=== PATIENT | female | born 1955 | race Caucasian/White ===

== ENCOUNTER 2018-12-16 10:16 | Emergency (ER) | payer OTHER ==
[2018-12-16 10:31] VITALS: BMI 35.7
--- NOTE | 2018-12-16 12:14 | PDOC ---
History of Present Illness - General Chief Complaint: Weakness Stated Complaint: WEAKNESS Time Seen by Provider: 12/16/18 11:01 - History of Present Illness Initial Comments: 12/16/18 12:06 This is a 67 year old female with PMH significant for Fibromyalgia, tinnitus, TIA, and colonic polyps. She presented to the ER with complaints of light headedness and dizziness since this morning. She states that she woke up at 3 AM (which us normal for her), and was standing in her kitchen at around 7 AM when she suddenly felt light headed and like she was about to fall down. She lied down in her bedroom, and felt better after 20 minutes. Whens he got up and returned to the kitchen, her symptoms began to re-appear. She denies spinning of the room or her head when the symptoms appear. She complains of associated nausea and a mild headache, but no vomiting. She denies fever, chills, cough. She has had nor recent changes in her medications, no recent illnesses, and no recent travel. She has a history of Fibromyalgia diagnosed in the , TIA in 2000, tinnitus diagnosed in 2007, 3 colonic polyps Past History - Past Medical History Allergies/Adverse Reactions: Allergies Allergy/AdvReac Type Severity Reaction Status Date / Time No Known Allergies Allergy Unverified 12/16/18 10:31 Home Medications: Ambulatory Orders Aspirin 81 mg PO DAILY 12/16/18 Anemia: No Asthma: Yes (SLIGHT ASTHMA) Cancer: No Cardiac Disorders: No CVA: No COPD: No CHF: No Dementia: No Diabetes: No GI Disorders: Yes (DIVERTICULOSIS,GERD,HIATAL HERNIA,COLON POLYP,GASTRIC FUNDIC POLYPS) Disorders: No HTN: No Hypercholesterolemia: No Liver Disease: No Seizures: No Thyroid Disease: No Other medical history: FIBROMYALGIA - Surgical History Abdominal Surgery: No Appendectomy: No Cardiac Surgery: No Cholecystectomy: No Lung Surgery: No Neurologic Surgery: No Orthopedic Surgery: No - Immunization History Immunization Up to Date: Yes - Psycho Social/Smoking Cessation Hx Smoking History: Never smoked Have you smoked in the past 12 months: No Information on smoking cessation initiated: No Hx Alcohol Use: (WINE/VODKA DAILY) Drug/Substance Use Hx: No Substance Use Type: None Hx Substance Use Treatment: No Review of Systems - Review of Systems Constitutional: No: Symptoms Reported, See HPI, Chills, Diaphoresis, Fever, Loss of Appetite, Malaise, Night Sweats, Weakness, Weight Stable, Unintentional Wgt. Loss, Unexplained wgt Loss, Other HEENTM: No: Symptoms Reported, See HPI, Eye Pain, Blurred Vision, Tearing, Recent change in vision, Double Vision, Cataracts, Ear Pain, Ocular Prothesis, Ear Discharge, Nose Pain, Nose Congestion, Tinnitus, Nose Bleeding, Hearing Loss , Throat Pain, Throat Swelling, Mouth Pain, Dental Problems, Difficulty Swallowing, Mouth Swelling, Other Respiratory: Yes: Shortness of Breath. No: Symptoms reported, See HPI, Cough, Orthopnea, SOB with Exertion, SOB at Rest, Stridor, Wheezing, Productive cough, Hemoptysis, Other Cardiac (ROS): Yes: Chest Pain ABD/GI: Yes: Diarrhea, Nausea. No: Symptoms Reported, See HPI, Abdominal Distended, Abd. Pain w/ defecation, Blood Streaked Bowels, Constipated, Difficulty Swallowing, Poor Appetite, Poor Fluid Intake, Rectal Bleeding, Vomiting, Indigestion, Abdominal cramping, Tarry Stools, Other : No: Symptoms Reported, See HPI, Burning, Dysuria, Discharge, Frequency, Flank Pain, Hematuria, Incontinence, Pain, Urgency, Testicular Mass, Testicular Swelling, Lesions, Testicular Pain, Other Musculoskeletal: No: Symptoms Reported, See HPI, Back Pain, Gout, Joint Pain, Joint Swelling, Muscle Pain, Muscle Weakness, Neck Pain, Joint Stiffness, Other Integumentary: No: Symptoms Reported, See HPI, Bruising, Change in Color, Change in Hair/Nails, Dryness, Erythema, Flushing, Lesions, Lumps, Pallor, Pruritus, Rash, Sweating, Other Neurological: Yes: Dizziness Psychiatric: Yes: Anxiety Endocrine: No: Symptoms Reported, See HPI, Excessive Sweating, Flushing, Intolerance to Cold, Intolerance to Heat, Increased Hunger, Increased Thirst, Increased Urine, Unexplained Weight Gain, Unexplained Weight Loss, Change in Weight, Other Hematologic/Lymphatic: No: Symptoms Reported, See HPI, Anemia, Blood Clots, Easy Bleeding, Easy Bruising, Bleeding Diathesis, Lymph Node Abnormalities, Swollen Glands, Other *Physical Exam - Vital Signs Last Vital Signs Temp Pulse Resp BP Pulse Ox 69 17 104/48 L 99 12/16/18 10:26 12/16/18 10:26 12/16/18 10:26 12/16/18 10:26 - Physical Exam Comments: 12/16/18 14:41 Neuro Exam: Winona Hallpike maneuver negative, did not Motor 4/5 in upper as well as lower extremities Romberg's positive, was unable to stand with eyes closed Finger to nose, rapid alternating movements normal No nystagmus noted General Appearance: Yes: Appropriately Dressed. No: Nourished, Apparent Distress, Disheveled, Mild Distress, Moderate Distress, Severe Distress, Alcohol on Breath, Intoxicated, Cachetic, Obese, Thin, Other HEENT: positive: Normal Voice, Pharynx Normal. negative: EOMI, ALLISON, Normal ENT Inspection, Symmetrical, TMs Normal, Pale Conjunctivae, Photophobia, Scleral Icterus (R), Scleral Icterus (L), Muffled/Hoarse voice, Pharyngeal Erythema, Tonsillar Exudate, Tonsillar Erythema, Nasal Congestion, Rhinorrhea, Sinus Tenderness, Orbits, Hearing Decreased, Hearing Grossly Normal, TM Bulging , TM Dull, TM Erythema, Lesions, [place], Excessive drooling, Thrush, Other Neck: positive: Trachea midline. negative: Tender, Normal Thyroid, Rigid, Supple, Carotid bruit, Decreased range of motion, Stridor, Lymphadenopathy (R), Lymphadenopathy (L), Rigidity, Tender lateral, Tender midline, Thyromegaly, Other Respiratory/Chest: positive: Normal Breath Sounds. negative: Chest Tender, Lungs Clear, Respiratory Distress, Accessory Muscle Use, Labored Respiration, Rapid RR, Decreased Breath Sounds, Paradoxal Breathing, Crackles, Rales, Rhonchi , Stridor, Wheezing, Hyperresonant, Dullness, Plerual Rub, Other Cardiovascular: positive: Regular Rhythm, Regular Rate. negative: S1, S2, Edema , JVD, Murmur, Bradycardia, Tachycardia, Diastolic Murmur, Systolic Murmur, Gallop/S3, Gallop/S4, Irregularly Irregular, Irregular, Other Gastrointestinal/Abdominal: positive: Normal Bowel Sounds, Soft. negative: Tender, Flat, Organomegaly, Pulsatile Mass, Increased Bowel Sounds, Decreased BS , Protuberent, Distended, Guarding, Rebound, Tenderness, Hernia, Mass, Hepatomegaly, Spleenomegaly, Other Extremity: positive: Normal Inspection, Normal Range of Motion. negative: Normal Capillary Refill, Tender, Pelvis Stable, Coldness, Cyanosis, Delayed Capillary Refill, Pedal Edema, Swelling, Calf Tenderness, Erythema, Inflammation , Other Neurologic: positive: powerhouse engineer II-XII NML intact, Fully Oriented, Alert. negative: Normal Mood/Affect, Normal Response, Motor Strength 5/5, Abnormal Cranial NS, Respond to painful stimul, Responsive, EOM Palsy, Facial Droop, Numbness, Sensory Deficit, Finger to Nose, Confused, Disoriented, Depressed Affect, Babinski, Other Heart Score/ECG Review - Electrocardiogram EKG: Normal - Age Age: 45-65 - Risk Factors Risk Factors Heart Score: Yes Positive family hx of cardiac disease - Troponin Troponin: </= normal limit - ECG Intrepretation Rhythm: Regular Rhythm ED Treatment Course - LABORATORY CBC & Chemistry Diagram: 12/16/18 13:08 12/16/18 13:08 Medical Decision Making - Medical Decision Making 12/16/18 12:34 - Fingerstick glucose: 70 - CBC/CMP - UA - EKG NSR - N/S 1000 Bolus - CXR 12/16/18 14:34 - Trops negative (ordered because patient complained of chest pain that started an hour ago) - Labs reviewed - CXR performed 12/16/18 15:16 -CXR reviewed, no evidence of any acute pathology Discharge - Discharge Information Problems reviewed: Yes Clinical Impression/Diagnosis: Dizziness Condition: Improved - Admission No - Follow up/Referral Referrals: Yelena Michel MD [Non Staff, Medical] - Camille Mena [Other] - Patient Discharge Instructions Additional Instructions: You presented to the ER with complaints of light headedness and dizziness. We did blood tests, an X Ray, and a scan of your heart (EKG). We did not find any abnormalities requiring urgent treatment. You also received fluids through an IV. Since you do not require urgent treatment, you are now being discharged. Follow-up: - Please visit your clinical trial coordinator Dr. Camilel Mena within 1 week to get an Echo done for your heart - Please visit your primary care physician Dr. Yelena Michel within 1 week. Additional information: - Please visit the ER if you have a fever, uncontrollable vomiting, headaches, chest pain, if you fall down, or have difficulty breathing. - Post Discharge Activity
[2018-12-16] MEDS ORDERED: SODIUM CHLORIDE 1,000 ML IV STA (12:33)
[2018-12-16 12:55] LABS: URINE APPEARANCE CLEAR; URINE BILIRUBIN NEGATIVE (NEGATIVE); URINE COLOR YELLOW; URINE GLUCOSE (UA) NEGATIVE (NEGATIVE); URINE KETONE NEGATIVE (NEGATIVE); URINE LEUK ESTERASE NEGATIVE (NEGATIVE); URINE NITRITE NEGATIVE (NEGATIVE); URINE PROTEIN NEGATIVE (NEGATIVE); URINE UROBILINOGEN 0.2 mg/dL (0.2-1.0)
[2018-12-16 13:21] LABS: EOS % 4.6 % (0-4.5); HEMATOCRIT 39.2 % (32.4-45.2); HEMOGLOBIN 13.2 GM/dL (10.7-15.3); LYMPH % 50.6 % (8-40); MCH 30.5 pg (25.7-33.7); MCHC 33.6 g/dl (32.0-36.0); MEAN CELL VOLUME 90.7 fl (80-96); MEAN PLT VOLUME 9.5 fl (7.5-11.1); MONO % 6.2 % (3.8-10.2); NEUT % 37.6 % (42.8-82.8); PLATELET COUNT 229 K/MM3 (134-434); RBC 4.32 M/mm3 (3.60-5.2); RDW 12.7 % (11.6-15.6); WHITE BLOOD COUNT 4.9 K/mm3 (4.0-10.0)
--- NOTE | 2018-12-16 13:42 | PDOC ---
Attending Attestation - Resident Resident Name: Julian Sky - ED Attending Attestation I have performed the following: I have examined & evaluated the patient, The case was reviewed & discussed with the resident, I agree w/resident's findings & plan - HPI HPI: 12/16/18 13:37 63-year-old female with history of nonspecific cognitive deficit/memory loss under neurology evaluation at [facility] pending outpt MRI (last MRI last year was normal) presents now with episode of light-headedness this morning. Patient was standing in her kitchen, developed symptoms of lightheadedness without headache/ vision change/speech change/focal deficit, no chest pain or palpitations but did have some shortness of breath, presents for evaluation. No history of syncope or exertional chest pain, has no exercise limitations at baseline. No recent infectious complaints or dehydration complaints, normal diet - Physicial Exam PE: 12/16/18 13:41 Vital signs are within normal limits, afebrile on my examination at 98.4 Well-appearing seated in stretcher, speaking full sentences Neurological exam is normal Heart is regular without audible murmur, lungs are clear Affect is slightly anxious, otherwise mood is normal - Medical Decision Making 12/16/18 13:42 63-year-old female with ongoing neurological outpatient evaluation presents with episode of lightheadedness today, no other red flags on history or physical exam. Not clinically consistent with ACS or arrhythmia, question panic attack versus vasovagal/orthostatic. Hemodynamically stable here with normal exam. Labs, urinalysis EKG IV fluids No indication for emergent neurological imaging, has outpatient MRI scheduled Reassess Heart Score/ECG Review #1 ECG reviewed & interpreted by me at: 12:32 General ECG Interpretation: Sinus Rhythm, Normal Rate (51, sinus slight sabine), Normal Intervals (qtc 438, IRBBB), No acute ischemic changes Compared to previous ECG there are: Previous ECG unavail
[2018-12-16 13:54] LABS: ALBUMIN 4.2 g/dl (3.4-5.0); ALK PHOS 93 U/L (45-117); ANION GAP 7 MMOL/L (8-16); BILIRUBIN,TOTAL 0.3 mg/dL (0.2-1); BLOOD UREA NITROGEN 8.2 mg/dL (7-18); CALCIUM 9.1 mg/dL (8.5-10.1); CHLORIDE 107 mmol/L (98-107); CO2 27 mmol/L (21-32); CREATININE 0.8 mg/dL (0.55-1.3); GLUCOSE,RANDOM 88 mg/dL (74-106); POTASSIUM 3.9 mmol/L (3.5-5.1); SGOT/AST 12 U/L (15-37); SGPT/ALT 16 U/L (13-61); SODIUM 140 mmol/L (136-145); TOT PROT 7.4 g/dl (6.4-8.2)
--- NOTE | 2018-12-16 15:34 | EKG ---
Test Reason : Blood Pressure : / mmHG Vent. Rate : 051 BPM Atrial Rate : 051 BPM P-R Int : 156 ms QRS Dur : 092 ms QT Int : 476 ms P-R-T Axes : 063 -44 036 degrees QTc Int : 438 ms POOR DATA QUALITY, INTERPRETATION MAY BE ADVERSELY AFFECTED SINUS BRADYCARDIA LEFT AXIS DEVIATION INCOMPLETE RIGHT BUNDLE BRANCH BLOCK ABNORMAL ECG NO PREVIOUS ECGS AVAILABLE Confirmed by Chris Galloway MD ([id number]) on 12/16/2018 3:34:22 PM Referred By: Confirmed By:Chris Galloway MD
[2018-12-16 15:48] VITALS: BP 112/63; PULSE 61; TEMP 98.3
== END 2018-12-16 16:00 | disposition home or self-care (01) ==
LOC: JER 10:16
PROC: 3E0337Z Introduction of Electrolytic and Water Balance Substance into Peripheral Vein, Percutaneous Approach (ICD-10-PCS; principal; 2018-12-16)
DX: R42 Dizziness and giddiness (principal); M79.7 Fibromyalgia; H93.19 Tinnitus, unspecified ear; R41.89 Other symptoms and signs involving cognitive functions and awareness; Z86.73 Personal history of transient ischemic attack (TIA), and cerebral infarction without residual deficits; Z87.19 Personal history of other diseases of the digestive system; Z79.82 Long term (current) use of aspirin
CPT/HCPCS: 36415; 71046-TC-FY; 80053; 81003; 82962; 84484; 85025; 93005; 93010; 96360; 99283-25; J7030

== ENCOUNTER 2019-12-25 21:04 | Emergency (ER) | payer OTHER ==
[2019-12-25 21:10] VITALS: BP 93/49; PULSE 68; TEMP 97.3; BMI 22.1
--- OUTSIDE RECORDS SUMMARY | 2019-12-25 22:06 | XMS ---
:1955 Author Organization [facility] Support Name Relationship Address Phone UE Unavailable Unavailable Unavailable RHONDA MARCELINO DAUGHTER [id number] [place] [address] Re-disclosure Warning The records that you are about to access may contain information from federally- assisted alcohol or drug abuse programs. If such information is present, then the following federally mandated warning applies: This information has been disclosed to you from records protected by federal confidentiality rules (42 CFR part 2). The federal rules prohibit you from making any further disclosure of this information unless further disclosure is expressly permitted by the written consent of the person to whom it pertains or as otherwise permitted by 42 CFR part 2. A general authorization for the release of medical or other information is NOT sufficient for this purpose. The Federal rules restrict any use of the information to criminally investigate or prosecute any alcohol or drug abuse patient.The records that you are about to access may contain highly sensitive health information, the redisclosure of which is protected by Article 27-F of the [facility] Public Health law. If you continue you may haveaccess to information: Regarding HIV / AIDS; Provided by facilities licensed or operated by the [facility] Office of Mental Health; or Provided by the [facility] Office for People With Developmental Disabilities. If such information is present, then the following [facility] mandated warning applies: This information has been disclosed to you from confidential records which are protected by state law. State law prohibits you from making any further disclosure of this information without the specific written consent of the person to whom it pertains, or as otherwise permitted by law. Any unauthorized further disclosure in violation of state law may result in a fine or nursing home sentence or both. A general authorization for the release of medical or other information is NOT sufficient authorization for further disclosure. Insurance Providers Payer name Policy type Policy ID Covered Covered republican's Policy P evelina / Coverage republican ID relationship to [place] [employer] ormation type [place] [employer] MEBMDNCR SP [id number] MEDICARE
--- NOTE | 2019-12-25 22:12 | PDOC ---
Attending Attestation - Resident Resident Name: Kale Urias - ED Attending Attestation I have performed the following: I have examined & evaluated the patient, The case was reviewed & discussed with the resident, I agree w/resident's findings & plan - HPI HPI: 12/26/19 00:30 Pt has epigastric pain. She states that she thinks her hiatal hernia is worse (She has no sign of hiatal hernia on any of her previous CXRs, or the CXR from today) Pt states that she went to [facility] for pre-colonoscopy labs and everything was normal on Nov 30. Pt has no chest pain and no SOB Pt reports drinking red wine last week with her daughter. She states that she drinks intermittently, sometimes heavily, but rarely so. She has a long history of drinking alcohol to help her sleep. She has no other complaints. - Physicial Exam PE: 12/26/19 01:22 Minimal RUQ pain. SHe has some epigastric pain. No radiation of the pain and no guarding and no rebound. afebrile VSS heart RRR Lungs CTA B no flank pain neuro exam normal - Medical Decision Making 12/25/19 23:35 Pt's BP is always low. She is on no meds for BP 12/25/19 23:36 CXR normal 12/25/19 23:36 CBC is normal chem pending 12/26/19 01:24 chem shows AST >> ALT elevated. I discussed with patient that this is likely due to her drinking. She is aware of this. 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 She will be sent for a liver sono 12/26/19 02:03 Patient Name: TERESA MARCELINO THIS IS A PRELIMINARY REPORT DATE OF SERVICE: 2019-12-26 01:10:24 IMAGES: 60 EXAM: ABDOMEN US -LIMITED , radical quadrant and limited abdominal duplex HISTORY: Elevated LFTs COMPARISON: None. FINDINGS: Right upper quadrant ultrasound:The liver is normal, without mass or biliary duct dilation. The gallbladder is distended and contains multiple stones without secondary findings of cholecystitis. The CBD is not dilated for age and measures7 millimeters in diameter. Right kidney measures 10.8centimeters in length and demonstrates questionable minimal hydronephrosis. The visualized aorta and IVC are normal. Pancreas is partially obscured, but appears normal. Abdominal duplex: The main portal vein demonstrates normal hepatopedal flow. IMPRESSION: Multiple gallstones without secondary findings of cholecystitis Stable for discharge Discharge - Discharge Information Problems reviewed: Yes Clinical Impression/Diagnosis: Transaminitis, Gallstones, Alcoholic hepatitis Abdominal pain Qualifiers: Abdominal location: epigastric Qualified Code(s): R10.13 - Epigastric pain Chest pain Qualifiers: Chest pain type: unspecified Qualified Code(s): R07.9 - Chest pain, unspecified Disposition: HOME - Admission No - Follow up/Referral - Patient Discharge Instructions Patient Printed Discharge Instructions: DI for Gallstones, DI for Abdominal Pain-Adult, DI for Atypical Chest Pain, DI for Alcohol Use Disorder Additional Instructions: You were seen in the ER today for chest pain/abdominal pain. The blood tests show that the liver enzymes are high but the other blood tests are normal. The ultrasound shows gallstones which could be causing your pain. I recommend that you make an appointment with a oil field tester and a GI doctor. Referrals are provided below. I also have provided a referral to a general surgeon in the case you would like the gallbladder removed. You can take Tylenol for the pain as needed. Drink plenty of water. Refrain from eating fried, fatty, spicy foods. Also refrain from drinking alcohol. Come back to the ER if the pain worsens, you are vomiting, you have fever or if any new or concerning symptom develops. Thank you - Post Discharge Activity
--- NOTE | 2019-12-25 22:16 | PDOC ---
History of Present Illness - General Chief Complaint: Chest Pain Stated Complaint: PALPITATIONS Time Seen by Provider: 12/25/19 21:54 - History of Present Illness Initial Comments: HPI: 12/25/19 22:14 64 yo F PMH hiatal hernia, asthma, pre-cancerous colonic polyps (gets colonoscopy every three years, scheduled for repeat Jan 06), presenting with sternal chest pain. States that around 1730, developed acute onset non-radiating sternal 5/10 chest pain, associated with diaphoresis. States that she is always mildly nauseous and mildly short of breath. Denies emesis. Took ibuprofen around 0 with improvements. ROS: GENERAL/CONSTITUTIONAL: denies fever, chills, diaphoresis HEAD, EYES, EARS, NOSE AND THROAT: denies rhinorrhea, nasal congestion NEUROLOGIC: denies headache, dizziness, mental status changes CARDIOVASCULAR: endorses chest pain. Denies syncope, palpitations, irregular heart rate, lightheadedness RESPIRATORY: endorses chronic SOB. Denies cough, dyspnea with exertion, wheezing GASTROINTESTINAL: endorses chronic nausea. Denies abdominal pain, abdominal distension, vomiting, diarrhea, constipation GENITOURINARY: denies dysuria, frequency, urgency MUSCULOSKELETAL: denies myalgia, arthralgia, joint swelling, back pain, neck pain SKIN: denies rash, itching HEMATOLOGIC/IMMUNOLOGIC: denies easy bleeding, easy bruising, lymphadenopathy, frequent infections ENDOCRINE: denies unexplained weight gain, unexplained weight loss, heat intolerance, cold intolerance PSYCHIATRIC: denies anxiety, depression, suicidal or homicidal ideation, hallucinations PE: Gen: well-developed, well-nourished, NAD Neuro: AAOX4, CN II-XII intact HEENT: atraumatic, normocephalic Neck: trachea midline, supple Chest wall: mild sternal tenderness CV: regular rate, regular rhythm, no murmurs, rubs, or gallops Pulm: CTA b/l, no wheezing Abd: soft, non-distended, non-tender MSK: full ROM, intact pulses Extr: no edema, no deformities Skin: warm, dry MDM: Rule out ACS. - CBC, CMP - EKG, CXR - trop CXR without acute pathology. EKG sinus bradycardia at 57 bpm, PA 178, QRS 92, QTc 424, lef axis deviation, T wave inversions in AVR. No ST segment elevation. 12/25/19 23:54 Reassessed, continuing to feel well. Awaiting CMP and trop, plan to admit to tele obs. 12/25/19 23:57 Patient endorsed to night team to f/u labs, admit to tele obs. Past History - Medical History Allergies/Adverse Reactions: Allergies Allergy/AdvReac Type Severity Reaction Status Date / Time No Known Allergies Allergy Unverified 12/25/19 21:10 Home Medications: Ambulatory Orders Aspirin 81 mg PO DAILY 12/16/18 Anemia: No Asthma: Yes (SLIGHT ASTHMA) Cancer: No Cardiac Disorders: No CVA: No COPD: No CHF: No Dementia: No Diabetes: No GI Disorders: Yes (DIVERTICULOSIS,GERD,HIATAL HERNIA,COLON POLYP,GASTRIC FUNDIC POLYPS) Disorders: No HTN: No Hypercholesterolemia: No Liver Disease: No Seizures: No Thyroid Disease: No - Surgical History Abdominal Surgery: No Appendectomy: No Cardiac Surgery: No Cholecystectomy: No Lung Surgery: No Neurologic Surgery: No Orthopedic Surgery: No - Immunization History Immunization Up to Date: Yes - Psycho-Social/Smoking History Smoking History: Never smoked Have you smoked in the past 12 months: No *Physical Exam - Vital Signs Last Vital Signs Temp Pulse Resp BP Pulse Ox 97.3 F L 68 18 93/49 L 100 12/25/19 21:05 12/25/19 21:05 12/25/19 21:05 12/25/19 21:05 12/25/19 21:05 ED Treatment Course - LABORATORY CBC & Chemistry Diagram: 12/25/19 23:12 12/25/19 23:12 Discharge - Discharge Information Problems reviewed: Yes Clinical Impression/Diagnosis: Transaminitis, Gallstones Abdominal pain Qualifiers: Abdominal location: epigastric Qualified Code(s): R10.13 - Epigastric pain Chest pain Qualifiers: Chest pain type: unspecified Qualified Code(s): R07.9 - Chest pain, unspecified Alcoholic hepatitis Qualifiers: Ascites presence: without ascites Qualified Code(s): K70.10 - Alcoholic hepatitis without ascites Condition: Good Disposition: HOME - Follow up/Referral Referrals: Brent Deal MD [Staff Physician] - Will Cleveland MD [Staff Physician] - - Patient Discharge Instructions Patient Printed Discharge Instructions: DI for Gallstones, DI for Abdominal Pain-Adult, DI for Atypical Chest Pain, DI for Alcohol Use Disorder Additional Instructions: You were seen in the ER today for chest pain/abdominal pain. The blood tests show that the liver enzymes are high but the other blood tests are normal. The ultrasound shows gallstones which could be causing your pain. I recommend that you make an appointment with a casino dealer and a GI doctor. Referrals are provided below. I also have provided a referral to a general surgeon in the case you would like the gallbladder removed. You can take Tylenol for the pain as needed. Drink plenty of water. Refrain from eating fried, fatty, spicy foods. Also refrain from drinking alcohol. Come back to the ER if the pain worsens, you are vomiting, you have fever or if any new or concerning symptom develops. Thank you - Post Discharge Activity
[2019-12-25 23:20] LABS: BASO % 0.5 % (0-2.0); EOS % 1.1 % (0-4.5); HEMATOCRIT 36.8 % (32.4-45.2); HEMOGLOBIN 12.5 GM/dL (10.7-15.3); LYMPH % 20.5 % (8-40); MCH 31.1 pg (25.7-33.7); MCHC 33.9 g/dl (32.0-36.0); MEAN CELL VOLUME 91.9 fl (80-96); MEAN PLT VOLUME 9.5 fl (7.5-11.1); MONO % 5.7 % (3.8-10.2); NEUT % 72.2 % (42.8-82.8); PLATELET COUNT 221 K/MM3 (134-434); RDW 12.6 % (11.6-15.6)
[2019-12-26 00:05] LABS: ALBUMIN 3.6 g/dl (3.4-5.0); ALK PHOS 96 U/L (45-117); ANION GAP 5 MMOL/L (8-16); BILIRUBIN,TOTAL 0.5 mg/dL (0.2-1); BLOOD UREA NITROGEN 15.1 mg/dL (7-18); CALCIUM 8.9 mg/dL (8.5-10.1); CHLORIDE 106 mmol/L (98-107); CO2 29 mmol/L (21-32); CREATININE 1.1 mg/dL (0.55-1.3); GLUCOSE,RANDOM 125 mg/dL (74-106); LIPASE 176 U/L (73-393); POTASSIUM 4.6 mmol/L (3.5-5.1); SGOT/AST 408 U/L (15-37); SGPT/ALT 212 U/L (13-61); SODIUM 140 mmol/L (136-145); TOT PROT 6.9 g/dl (6.4-8.2)
--- NOTE | 2019-12-26 02:03 | PDOC ---
*Physical Exam - Vital Signs Last Vital Signs Temp Pulse Resp BP Pulse Ox 97.3 F L 68 18 93/49 L 100 12/25/19 21:05 12/25/19 21:05 12/25/19 21:05 12/25/19 21:05 12/25/19 21:05 - Physical Exam General Appearance: Yes: Nourished, Appropriately Dressed, Apparent Distress HEENT: positive: EOMI, ALLISON, Normal ENT Inspection. negative: Scleral Icterus (R), Scleral Icterus (L) Neck: positive: Trachea midline, Supple Respiratory/Chest: positive: Lungs Clear, Normal Breath Sounds. negative: Stridor, Wheezing, Hyperresonant Cardiovascular: positive: Regular Rhythm, Regular Rate, S1, S2 Vascular Pulses: Dorsalis-Pedis (R): 2+, Doralis-Pedis (L): 2+ Gastrointestinal/Abdominal: positive: Normal Bowel Sounds, Soft. negative: Tender, Distended, Guarding, Rebound, Tenderness, Hernia Musculoskeletal: negative: CVA Tenderness Extremity: positive: Normal Capillary Refill. negative: Pedal Edema, Swelling, Calf Tenderness Integumentary: positive: Normal Color, Dry, Warm Neurologic: positive: tire sorter II-XII NML intact, Fully Oriented, Alert, Normal Mood/Affect, Normal Response, Motor Strength 5/5 ED Treatment Course - LABORATORY CBC & Chemistry Diagram: 12/25/19 23:12 12/25/19 23:12 - ADDITIONAL ORDERS Additional order review: Laboratory Results 12/25/19 23:12 Sodium 140 Potassium 4.6 Chloride 106 Carbon Dioxide 29 Anion Gap 5 L BUN 15.1 Creatinine 1.1 Est GFR (CKD-EPI)AfAm 61.01 Est GFR (CKD-EPI)NonAf 52.64 Random Glucose 125 H Calcium 8.9 Total Bilirubin 0.5 AST 408 H ALT 212 H Alkaline Phosphatase 96 Creatine Kinase 117 Troponin I < 0.02 Total Protein 6.9 Albumin 3.6 Lipase 176 12/25/19 23:12 RBC 4.00 MCV 91.9 MCHC 33.9 RDW 12.6 MPV 9.5 Neutrophils % 72.2 D Lymphocytes % 20.5 D Monocytes % 5.7 Eosinophils % 1.1 Basophils % 0.5 - RADIOLOGY Radiology Studies Ordered: Category Date Time Status CHEST X-RAY PORTABLE* [RAD] Stat Radiology 10/09/20 21:38 Taken Medical Decision Making - Medical Decision Making 12/26/19 02:09 sign out from night team. 64y F presenting for upper abdominal pain since 4pm. labs show transaminitis. us shows gb stones but normal liver, normal cbd. ekg noted without acute ischemia. trop negative. cxr with no acute pathology per my read. no white count, normal bili. pt not having pain. will dc home discussed results with pt. advised to f/u with gi and cardiology which pt has at [facility]. refusing surgery consult. return precautions provided. Discharge - Discharge Information Problems reviewed: Yes Clinical Impression/Diagnosis: Transaminitis, Gallstones, Alcoholic hepatitis Abdominal pain Qualifiers: Abdominal location: epigastric Qualified Code(s): R10.13 - Epigastric pain Chest pain Qualifiers: Chest pain type: unspecified Qualified Code(s): R07.9 - Chest pain, unspecified Condition: Good Disposition: HOME - Admission No - Follow up/Referral Referrals: Will Cleveland MD [Staff Physician] - Brent Deal MD [Staff Physician] - - Patient Discharge Instructions Patient Printed Discharge Instructions: DI for Gallstones, DI for Abdominal Pain-Adult, DI for Atypical Chest Pain, DI for Alcohol Use Disorder Additional Instructions: You were seen in the ER today for chest pain/abdominal pain. The blood tests show that the liver enzymes are high but the other blood tests are normal. The ultrasound shows gallstones which could be causing your pain. I recommend that you make an appointment with a audio operator and a GI doctor. Referrals are provided below. I also have provided a referral to a general surgeon in the case you would like the gallbladder removed. You can take Tylenol for the pain as needed. Drink plenty of water. Refrain from eating fried, fatty, spicy foods. Also refrain from drinking alcohol. Come back to the ER if the pain worsens, you are vomiting, you have fever or if any new or concerning symptom develops. Thank you - Post Discharge Activity
--- NOTE | 2019-12-27 07:01 | EKG ---
Test Reason : Blood Pressure : / mmHG Vent. Rate : 057 BPM Atrial Rate : 057 BPM P-R Int : 178 ms QRS Dur : 092 ms QT Int : 436 ms P-R-T Axes : 037 -55 036 degrees QTc Int : 424 ms SINUS BRADYCARDIA LEFT AXIS DEVIATION INCOMPLETE RIGHT BUNDLE BRANCH BLOCK NONSPECIFIC ST AND T WAVE ABNORMALITY ABNORMAL ECG WHEN COMPARED WITH ECG OF 16-DEC-2018 12:32, NONSPECIFIC T WAVE ABNORMALITY NOW EVIDENT IN LATERAL LEADS CLINICAL CORRELATION IS RECOMMENDED Confirmed by MIRTHA FERRER MD ([id number]) on 12/27/2019 7:01:21 AM Referred By: Confirmed By:MIRTHA FERRER MD
== END 2019-12-26 15:55 | disposition home or self-care (01) ==
LOC: JER 21:04
DX: R07.9 Chest pain, unspecified (principal); R10.13 Epigastric pain; K70.10 Alcoholic hepatitis without ascites
CPT/HCPCS: 36415; 71045-TC-FY; 76705-TC; 80053; 82550; 83690; 84484; 85025; 93005; 93010; 99285-25